=== PATIENT | female | born 1950 | race Hispanic/Latino ===

== ENCOUNTER 2017-09-29 21:27 | Inpatient (IN) | payer OTHER, MEDICARE ==
[~2017-09-29] VITALS: Ht 153.7 cm; Wt 68.5 kg
[2017-09-29] MEDS ORDERED: KETOROLAC TROMETHAMINE 30 MG/ML VIAL IV STA (21:52)
[2017-09-29] MEDS ORDERED: PANTOPRAZOLE 40 MG 10ML VIAL IV STA (21:52)
[2017-09-29] MEDS ORDERED: ONDANSETRON HCL INJ 2 MG/ML VIAL IV STA (21:52)
[2017-09-29] MEDS ORDERED: SODIUM CHLORIDE 0.9% 1000ML 1,000 ML IV STA (21:52)
[2017-09-29] MEDS ORDERED: MORPHINE SULFATE 2 MG/ML SYR IV STA (21:52)
[2017-09-29 22:20] LABS: BASOPHILS % 0.1 % (0.0-1.0); EOSINOPHILS % 0.2 % (0.0-6.0); HEMATOCRIT 41.5 % (34.2-44.1); HEMOGLOBIN 13.4 g/dL (12.0-16.0); LYMPHOCYTES # (AUTO) 1.4 (1.0-3.2); LYMPHOCYTES % 12.8 % (18.0-39.1); MEAN CORPUSCULAR HEMOGLOBIN 28.5 pg (28-32); MEAN CORPUSCULAR HGB CONC 32.3 g/dL (31-35); MEAN CORPUSCULAR VOLUME 88.3 fL (81-99); MONOCYTES # (AUTO) 0.4 (0.2-0.8); MONOCYTES % 3.5 % (4.4-11.3); NEUTROPHILS # (AUTO) 9.1 (2.1-6.9); NEUTROPHILS % 82.9 % (38.7-80.0); PLATELET COUNT 249 x10e3/uL (140-360); RED CELL DISTRIBUTION WIDTH 14.1 % (11.7-14.4)
[2017-09-29 22:21] LABS: BILIRUBIN,URINE NEGATIVE (NEGATIVE); KETONES,URINE NEGATIVE (NEGATIVE); LEUKOCYTE ESTERASE ,URINE 1+ (NEGATIVE); NITRITE,URINE NEGATIVE (NEGATIVE); PROTEIN,URINE DIPSTICK NEGATIVE (NEGATIVE); URINE UROBILINOGEN 0.2 mg/dL (0.2 - 1)
[2017-09-29 22:22] LABS: CLARITY,URINE CLEAR (CLEAR); COLOR,URINE YELLOW (YELLOW)
[2017-09-29 22:32] LABS: INR 1.07; PROTHROMBIN TIME 13.1 seconds (11.9-14.5)
--- NOTE | 2017-09-29 22:32 | Diagnostic Imaging Report ---
EXAM: CT ABDOMEN AND PELVIS without IV CONTRAST INDICATION: Left lower quadrant and flank pain COMPARISON: None TECHNIQUE: The abdomen and pelvis were scanned using a multidetector helical scanner. Coronal and sagittal reformations were obtained. Renal stone protocol performed. IV Contrast: None Oral Contrast: None CTDIvol has been reviewed. It is below the limits set by the Radiation Protocol Committee (RPC). FINDINGS: LOWER THORAX: No consolidations LIVER: No masses BILIARY: The gallbladder has been removed. No ductal dilation. SPLEEN: Nonspecific 3.5 cm hypodense mass in the spleen. PANCREAS: No masses ADRENALS: No nodules RIGHT KIDNEY: No nephroureterolithiasis or hydronephrosis. LEFT KIDNEY: There is a 4 mm stone within 1 cm of the left ureterovesicular junction resulting in moderate hydroureteronephrosis. GI TRACT: No wall thickening or obstruction. Normal appendix. VESSELS: Mild atherosclerotic changes of the abdominal aorta without aneurysm. PERITONEUM/RETROPERITONEUM: No free air or fluid LYMPH NODES: No lymphadenopathy REPRODUCTIVE ORGANS: Normal BLADDER: Decompressed SOFT TISSUES: Normal BONES: No suspicious bone lesions. IMPRESSION: There is a 4 mm stone within 1 cm of the left ureterovesicular junction resulting in moderate hydroureteronephrosis. Nonspecific 3.5 cm hypodense mass in the spleen. In the absence of lymphoma or known primary malignancy, this is most likely a hemangioma or proteinaceous cyst. If there are no priors available for comparison, this could be further evaluated by a nonemergent MRI of the abdomen with and without IV contrast. Signed by: Dr. Arin Parker M.D. on 09/29/2017 10:28 PM
[2017-09-29 22:33] LABS: BACTERIA,URINE RARE /HPF; EPITHELIAL CELLS,URINE FEW /LPF; PARTIAL THROMBOPLASTIN TIME 28.5 seconds (23.8-35.5)
--- NOTE | 2017-09-29 22:33 | Diagnostic Imaging Report ---
EXAM: CHEST SINGLE (PORTABLE), AP 1 view INDICATION: Left-sided abdominal pain and back pain COMPARISON: None FINDINGS: LINES/TUBES: None LUNGS: No consolidations or edema. PLEURA: No effusions or pneumothorax. HEART AND MEDIASTINUM: Normal size and contour. BONES AND SOFT TISSUES: No acute findings. IMPRESSION: No acute thoracic abnormality. Signed by: Dr. Arin Parker M.D. on 09/29/2017 10:30 PM
[2017-09-29 22:42] LABS: ALBUMIN 4.3 g/dL (3.5-5.0); ALBUMIN/GLOBULIN RATIO 1.3 (0.8-2.0); ANION GAP 13.6 mmol/L (8-16); CALCIUM 10.5 mg/dL (8.4-10.2); CREATININE, SERUM 0.98 mg/dL (0.57-1.11); MAGNESIUM 1.8 MG/DL (1.3-2.1); POTASSIUM 4.6 mmol/L (3.5-5.1)
[2017-09-29 22:50] LABS: CREATINE KINASE MB 0.8 ng/mL (0-5.0)
[2017-09-29] MEDS: CEFTRIAXONE SOD 1 GM VIAL IV SCH (23:42)
[2017-09-30] VITALS (9 sets, daily range): BP systolic 104–146; BP diastolic 53–65
[2017-09-30] MEDS ORDERED: MORPHINE SULFATE 2 MG/ML SYR IV PRN
[2017-09-30] MEDS ORDERED: ONDANSETRON HCL INJ 2 MG/ML VIAL IV PRN
[2017-09-30] MEDS ORDERED: DEXTROSE 50% SYRINGE 50 ML IV PRN
[2017-09-30] MEDS ORDERED: CALCIUM 600 +1 EAC1 PO (00:04)
[2017-09-30] MEDS ORDERED: LISINOPRIL2.5 MG PO (00:04)
[2017-09-30] MEDS ORDERED: ATORVASTATIN CA20 MG PO (00:04)
[2017-09-30] MEDS ORDERED: METFORMIN HCL500 MG PO (00:04)
[2017-09-30] MEDS ORDERED: PIOGLITAZONE HC45 MG PO (00:04)
[2017-09-30] MEDS ORDERED: FAMOTIDINE20 MG PO (00:04)
--- OUTSIDE RECORDS SUMMARY | 2017-09-30 00:07 | XMS REPORT ---
Author Author [facility] Address Unknown Phone Unavailable Care Team Providers Care House Painting Instructor Name Role Phone PAUL GRUBBS Unavailable Unavailable Problems This patient has no known problems. Allergies, Adverse Reactions, Alerts This patient has no known allergies or adverse reactions. Medications This patient has no known medications. Results Test Description Test Time Test Comments Text Results Atomic Results Result Comments CT ABDOMEN/PELVIS WO [place] [address] Patient Name: JOSE CUELLO MR #: [id number] : 1950 Age/Sex: 66/F Req #: [id number] Adm Physician: Ordered by: PAUL GRUBBS MD Report #: [id number] Location: ER Room/Bed: Procedure: [id number] CT/CT ABDOMEN/PELVIS WO Exam Date: 09/29/17 Exam Time: 2204 REPORT STATUS: Signed EXAM: CT ABDOMEN AND PELVIS without IV CONTRAST INDICATION: Left lower quadrant and flank pain COMPARISON: None TECHNIQUE: The abdomen and pelvis were scanned using a multidetector helical scanner. Coronal and sagittal reformations were obtained. Renal stone protocol performed. IV Contrast: None Oral Contrast : None CTDIvol has been reviewed. It is below the limits set by the Radiation Protocol Committee (RPC). FINDINGS: LOWER THORAX: No consolidations LIVER: No masses BILIARY: The gallbladder has been removed. No ductal dilation. SPLEEN: Nonspecific 3.5 cm hypodense mass in the spleen. PANCREAS: No masses ADRENALS: No nodules RIGHT KIDNEY: No nephroureterolithiasis or hydronephrosis. LEFT KIDNEY: There is a 4 mm stone within 1 cm of the left ureterovesicular junction resulting in moderate hydroureteronephrosis. GI TRACT: No wall thickening or obstruction. Normal appendix. VESSELS: Mild atherosclerotic changes of the abdominal aorta without aneurysm. PERITONEUM/RETROPERITONEUM: No free air or fluid LYMPH NODES: No lymphadenopathy REPRODUCTIVE ORGANS: Normal BLADDER: Decompressed SOFT TISSUES: Normal BONES: No suspicious bone lesions. IMPRESSION: There is a 4 mm stone within 1 cm of the left ureterovesicular junction resulting in moderate hydroureteronephrosis. Nonspecific 3.5 cm hypodense mass in the spleen. In the absence of lymphoma or known primary malignancy, this is most likely a hemangioma or proteinaceous cyst. If there are no priors available for comparison, this could be further evaluated by a nonemergent MRI of the abdomen with and without IV contrast. Signed by: Dr. Luz Marina Kingsley M.D. on 09/29/2017 10:28 PM Dictated By: LUZ MARINA KINGSLEY MD 27 Transcribed By: LIMA on 09/29/172227 COPY TO: PAUL GRUBBS MD [facility] ([place] [address] Patient Name: JOSE CUELLO MR #: [id number] : 1950 Age/Sex: 66/F Req #: [id number] Adm Physician: Ordered by: PAUL GRUBBS MD Report #: [id number] Location: ER Room/Bed: Procedure: [id number] DX/CHEST SINGLE (PORTABLE) Exam Date: 09/29/17 Exam Time: 2209 REPORT STATUS: Signed EXAM: CHEST SINGLE (PORTABLE), AP 1 view INDICATION: Left-sided abdominal pain and back pain COMPARISON: None FINDINGS: LINES/TUBES: None LUNGS: No consolidations or edema. PLEURA: No effusions or pneumothorax. HEART AND MEDIASTINUM: Normal size and contour. BONES AND SOFT TISSUES: No acute findings. IMPRESSION: No acute thoracic abnormality. Signed by: Dr. Luz Marina Kingsley M.D. on 09/29/2017 10:30 PM Dictated By: LUZ MARINA KINGSLEY MD 29 Transcribed By: LIMA on 09/29/172229 COPY TO: PAUL GRUBBS MD
[2017-09-30] MEDS ORDERED: ACTOS15 MG PO (00:19)
[2017-09-30] MEDS: INSULIN REGULAR, HUMAN 100 UNIT/1 ML 3ML VIAL SQ SCH ×4 (00:26→18:01)
[2017-09-30] MEDS: SODIUM CHLORIDE 0.9% 1000ML 1,000 ML IV SCH ×3 (02:15→21:36)
[2017-09-30 09:39] LABS: BASOPHILS % 0.2 % (0.0-1.0); EOSINOPHILS % 0.5 % (0.0-6.0); HEMATOCRIT 37.2 % (34.2-44.1); LYMPHOCYTES # (AUTO) 1.1 (1.0-3.2); LYMPHOCYTES % 27.5 % (18.0-39.1); MEAN CORPUSCULAR HEMOGLOBIN 28.7 pg (28-32); MEAN CORPUSCULAR HGB CONC 32.3 g/dL (31-35); MONOCYTES # (AUTO) 0.2 (0.2-0.8); NEUTROPHILS # (AUTO) 2.6 (2.1-6.9); NEUTROPHILS % 65.6 % (38.7-80.0); PLATELET COUNT 199 x10e3/uL (140-360); RED BLOOD COUNT 4.18 x10e6/uL (3.6-5.1); RED CELL DISTRIBUTION WIDTH 14.2 % (11.7-14.4)
[2017-09-30 09:58] LABS: ALANINE AMINOTRANSFERASE 16 IU/L (0-55); ALBUMIN 3.3 g/dL (3.5-5.0); ALBUMIN/GLOBULIN RATIO 1.3 (0.8-2.0); ALKALINE PHOSPHATASE 58 IU/L (40-150); ANION GAP 10.9 mmol/L (8-16); BLOOD UREA NITROGEN 16 mg/dL (7-26); BUN/CREATININE RATIO 21 (6-25); CARBON DIOXIDE 24 mmol/L (22-29); CHLORIDE 109 mmol/L (98-107); CREATININE, SERUM 0.78 mg/dL (0.57-1.11); EST GLOMERULAR FILTRATION RATE > 60 ML/MIN (60-); GLUCOSE 173 mg/dL (74-118); POTASSIUM 3.9 mmol/L (3.5-5.1); SODIUM 140 mmol/L (136-145)
--- NOTE | 2017-09-30 10:30 | Diagnostic Imaging Report ---
PROCEDURE:X-RAY ABDOMEN - KUB COMPARISON:CT abdomen and pelvis 09/29/2017. INDICATIONS:KIDNEY STONES LEFT SIDE FINDINGS: 4 mm left pelvic calculus, shown to lie just proximal the left ureterovesical junction on comparison CT, is unchanged in position relative to basket turner tomogram. No additional calcifications project over the renal shadows, expected ureteral courses, or urinary bladder. Bowel gas pattern is nonobstructive. Cholecystectomy clips. 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 CONCLUSION: 4 mm left ureterovesical junction calculus is grossly unchanged in position relative to basket turner tomogram from CT examination 09/29/2017. Dictated by: Varinder Suarez M.D. on 09/30/2017 at 10:29 Electronically approved by: Varinder Suarez M.D. on 09/30/2017 at 10:29
[2017-09-30] MEDS: TAMSULOSIN HCL 0.4 MG CAP PO SCH ×2 (15:37→21:00)
[2017-09-30] MEDS ORDERED: FAMOTIDINE 20 MG TAB PO ONE (15:45)
[2017-09-30] MEDS ORDERED: POLYETHYLENE GLYCOL 3350 17 GM PACK PO ONE (16:45)
[2017-09-30] MEDS ORDERED: POLYETHYLENE GLYCOL 3350 17 GM PACK PO PRN (16:45)
[2017-09-30] MEDS ORDERED: LACTULOSE SYRUP 20 GM/30 ML UDC PO PRN (17:15)
[2017-09-30] MEDS ORDERED: HYDRALAZINE HCL 20 MG/ML VIAL IV PRN (17:15)
[2017-09-30] MEDS: ASCORBIC ACID 500 MG TAB PO SCH (17:37)
[2017-09-30] MEDS: DOCUSATE SODIUM 100 MG CAP PO SCH (17:37)
[2017-09-30] MEDS: CEFTRIAXONE SOD 1 GM VIAL IV SCH (23:15)
[2017-10-01] VITALS (8 sets, daily range): BP systolic 92–148; BP diastolic 51–66
[2017-10-01] MEDS: INSULIN REGULAR, HUMAN 100 UNIT/1 ML 3ML VIAL SQ SCH ×4 (06:00→16:34)
[2017-10-01] MEDS: SODIUM CHLORIDE 0.9% 1000ML 1,000 ML IV SCH ×2 (06:46→16:19)
[2017-10-01 07:22] LABS: BASOPHILS % 0.3 % (0.0-1.0); EOSINOPHILS # (AUTO) 0.1 (0.0-0.4); EOSINOPHILS % 1.4 % (0.0-6.0); HEMATOCRIT 35.9 % (34.2-44.1); HEMOGLOBIN 11.5 g/dL (12.0-16.0); LYMPHOCYTES # (AUTO) 1.6 (1.0-3.2); LYMPHOCYTES % 43.8 % (18.0-39.1); MEAN CORPUSCULAR HEMOGLOBIN 28.6 pg (28-32); MEAN CORPUSCULAR VOLUME 89.3 fL (81-99); MONOCYTES # (AUTO) 0.2 (0.2-0.8); MONOCYTES % 5.9 % (4.4-11.3); NEUTROPHILS # (AUTO) 1.7 (2.1-6.9); NEUTROPHILS % 48.3 % (38.7-80.0); PLATELET COUNT 189 x10e3/uL (140-360); RED BLOOD COUNT 4.02 x10e6/uL (3.6-5.1); RED CELL DISTRIBUTION WIDTH 14.6 % (11.7-14.4)
--- NOTE | 2017-10-01 07:24 | Consultation ---
DATE OF CONSULTATION: September 30, 2017 UROLOGICAL CONSULTATION CHIEF UROLOGICAL COMPLAINT/REASON FOR CONSULTATION: Kidney stones. HISTORY OF PRESENT ILLNESS: Ms. Mckay is a 66-year-old female admitted to the hospital with acute onset of left severe sharp flank pain. She denied dysuria. She denied hematuria. PAST MEDICAL HISTORY: Significant for cholecystectomy, hyperlipidemia, gastroesophageal reflux disease. MEDICATIONS: Please see MAR. ALLERGIES: NKDA. SOCIAL HISTORY: Does not smoke or drink. FAMILY HISTORY: Denied urologic stones. No malignancies. REVIEW OF SYSTEMS: Noncontributory other than problems mentioned above for all other 12 systems. PHYSICAL EXAMINATION GENERAL: Elderly female in no acute distress. VITALS: Temperature 97, pulse 64, respirations 16, blood pressure 110/59. HEENT: Sclerae anicteric. NECK: Supple. BACK: Without costovertebral abnormality. ABDOMEN: Soft. It is nontender. It is nondistended. There are no palpable mass. No palpable hernias. No palpable lymphadenopathy. : Normal female external genitalia. EXTREMITIES: Without edema or clubbing. PSYCH: Alert and oriented and appropriate. SKIN: Intact and normal color. PERTINENT LABORATORY DATA: CT scan showing a 4 mm left ureterovesical junction stone, hydronephrosis, a 3.5 cm hyperdense splenic mass. Sodium 137, potassium 4, chloride 102, bicarb 26, BUN 18, creatinine 0.98, glucose 164. Hemoglobin 13, hematocrit 41, and platelet count 249,000. White blood cell count 10,900. Urinalysis with 11-20 reds, 6-10 whites and positive squames. IMPRESSION 1. Left ureteral calculus. 2. Left hydronephrosis. 3. Left renal colic. 4. Hyperglycemia. 5. Microscopic hematuria. 6. Urinary tract infection. PLAN: Employ a trial of passage. Should this fail, the patient will need stenting. Thank you for allowing me to participate in the care of your patient. I will be happy to follow along with you. Job#: [id number] RI cc:HIWOT THOMSON MD
[2017-10-01 07:40] LABS: ANION GAP 9.2 mmol/L (8-16); BLOOD UREA NITROGEN 11 mg/dL (7-26); BUN/CREATININE RATIO 17 (6-25); CALCIUM 8.8 mg/dL (8.4-10.2); CARBON DIOXIDE 27 mmol/L (22-29); CHLORIDE 111 mmol/L (98-107); CREATININE, SERUM 0.66 mg/dL (0.57-1.11); EST GLOMERULAR FILTRATION RATE > 60 ML/MIN (60-); GLUCOSE 128 mg/dL (74-118); MAGNESIUM 1.8 MG/DL (1.3-2.1); PHOSPHORUS 3.4 MG/DL (2.3-4.7); POTASSIUM 4.2 mmol/L (3.5-5.1); SODIUM 143 mmol/L (136-145)
[2017-10-01] MEDS: TAMSULOSIN HCL 0.4 MG CAP PO SCH ×2 (08:40→21:01)
[2017-10-01] MEDS: DOCUSATE SODIUM 100 MG CAP PO SCH ×2 (08:40→16:33)
[2017-10-01] MEDS: FAMOTIDINE 20 MG TAB PO SCH (08:40)
[2017-10-01] MEDS: ASCORBIC ACID 500 MG TAB PO SCH ×2 (08:40→16:33)
--- NOTE | 2017-10-01 10:57 | Diagnostic Imaging Report ---
PROCEDURE:ABDOMEN-1VIEW (KUB) TECHNIQUE:Supine AP abdomen INDICATION:Kidney stones COMPARISON:Patients [facility], CT, CT ABDOMEN/PELVIS WO, 09/29/2017, 22:06. Patients [facility], DX, ABDOMEN-1VIEW (KUB), 09/30/2017, 10:05. FINDINGS: See conclusion. Normal bowel gas pattern. Cholecystectomy clips. Intact skeleton. CONCLUSION: 1. Stable 4 mm left ureterovesicular junction stone. No additional conspicuous renal stones. 2. Otherwise, no interval change from September 30. Dictated by: Sadiq Guillaume M.D. on 10/01/2017 at 10:57 Electronically approved by: Sadiq Guillaume M.D. on 10/01/2017 at 10:57
--- NOTE | 2017-10-01 11:28 | History and Physical ---
PRIMARY CARE PROVIDER: Dr. Darren Moffett. HISTORY OF PRESENT ILLNESS: Ms. Mckay is a 66-year-old female who arrived via the emergency department yesterday complaining of left flank pain, described as sharp and radiating to the left groin. It has been constant and waxing and waning. Its maximum in severity was described as severe, no contributing or alleviating factors. No recent travel. She denies any past medical history of kidney stones. She has been admitted and has been given normal saline, IV fluids and morphine for pain. PAST MEDICAL HISTORY: Hyperlipidemia, gastroesophageal reflux disease, type 2 diabetes mellitus diagnosed in 2013, hypertension, gallstones, mild asthma. She states she had an echocardiogram and stress test in 2005 due to dizziness, which were normal. She had a colonoscopy about 10 years ago which she states was negative with 1 polyp which was biopsied and negative. PAST SURGICAL HISTORY: Total abdominal hysterectomy with bilateral salpingo-oophorectomy in 1998, cholecystectomy. FAMILY HISTORY: Her father of a myocardial infarction when he was 68. He had a subsequent coronary artery bypass graft and at age 72. He also had diabetes, hypertension and hyperlipidemia. The patient states that her father, mother, 2 sisters and one brother all had diabetes mellitus, hyperlipidemia and hypertension. ALLERGIES: NO KNOWN DRUG ALLERGIES. HOME MEDICATIONS: Metformin, lisinopril, atorvastatin, calcium carbonate with vitamin D3. SOCIAL HISTORY: She lives with her son. She denies any history of tobacco use or illicit drug use or alcohol use. REVIEW OF SYSTEMS: GENERAL: The patient denies any fatigue. She does have malaise. No complaints of chills. HEENT: Denies any visual complaints. No complaints of sore throat or stuffy nose. CARDIOVASCULAR: No complaints of chest pain or palpitations. No complaints of syncope. PULMONARY: Denies any pleuritic chest pain. No shortness of breath, cough or phlegm. GASTROINTESTINAL: Denies nausea, vomiting or diarrhea. She states she usually has a BM in the morning, and then 1-2 bowel movements during the day. Her last bowel movement was yesterday and she had 3 per her usual routine. However, she did not have a bowel movement this morning. GENITOURINARY: The patient states her pain is currently 3 on a scale of 0-10. She does complain of pressure and urgency. She has left costovertebral angle pain. Denies dysuria. Denies frequency. MUSCULOSKELETAL: No complaints of back pain or joint pain. ENDOCRINE: Positive for diabetes. HEMATOLOGY: Denies bleeding or bruising. INFECTIOUS DISEASE: No known history of HIV or immunodeficiency. NEUROLOGIC: Denies any focal weakness, numbness, tingling, seizures. PHYSICAL EXAMINATION VITAL SIGNS: Temperature 96.4, heart rate 71, blood pressure 146/65 with a pulse of 92, respiratory rate 20, oxygen saturation 100%, weight 151 pounds. BMI 29. Intake and output: 1400 mL in and output not documented. GENERAL: The patient is well nourished, well developed, and in no acute distress, sitting in a chair at the bedside. HEENT: Pupils are equal, round and reactive to light. Extraocular eyes movements intact. Oropharynx is clear. Normocephalic, atraumatic. NECK: Supple with no lymphadenopathy, thyromegaly or JVD noted. No carotid bruits. CARDIOVASCULAR: Regular rate and rhythm without murmur. LUNGS: Air entry bilaterally. Lung sounds are clear to auscultation. ABDOMEN: Bowel sounds positive, soft. Mild tenderness to gentle palpation. Left costovertebral angle tenderness. EXTREMITIES: No pitting edema. No clubbing or cyanosis or notable swelling. No signs or symptoms of DVT. INTEGUMENT: Warm, dry. NEUROLOGIC: GCS 15. Cranial nerves II-X are intact. Alert and oriented x4. Nonfocal. LABORATORY DATA: Fingerstick blood glucose levels [id number], 111, 133, 133. On admission, sodium 137, potassium 4.6, chloride 102, CO2 26. Anion gap 13.6. BUN 18. Creatinine 0.898. GFR 57. Glucose 164. Calcium 10.5. Magnesium 1.8. Total bilirubin 0.6, AST 16, ALT 21, alkaline phosphatase 81. Creatinine kinase 83. CK MB. 0.8. Troponin I 0.018. Total protein 7.6. Albumin 4.3. Amylase 44, lipase 48. WBC10.99. Hemoglobin 13.4, hematocrit 41.5, platelets 249. PT 13.1. INR 1.07. PTT 28.5. Urinalysis collected yesterday showed specific gravity 1.020, 4+ blood, negative nitrites. Bilirubin negative. One plus leukocyte esterase, 11-20 RBCs, 6-10 WBCs, few epithelial cells and rare urine bacteria. Urine culture and sensitivity is in process. Chest x-ray yesterday showed no acute thoracic abnormalities. CT of the abdomen and pelvis without IV contrast yesterday showed a 4 mm stone with 1 cm of the left ureterovesicular junction resulting in moderate hydroureteronephrosis. Nonspecific 3.5 cm hypodense mass in the spleen today and abdominal x-ray showed 4 mm left ureterovesicular junction calculus grossly unchanged from the position relative to Automotive [employer] Advisor tomogram from CT examination done yesterday. ASSESSMENT AND PLAN 1. Urethral calculus with obstruction. The patient will likely have a stent placed tomorrow. Dr. Aaron Barrow with urology has been consulted. Continue pain control with morphine sulfate IV. 2. Urinary tract infection. She is on Rocephin 1 gram IV daily. Will add vitamin C. Will ask that strict intake and output be collected. 3. Type 2 diabetes mellitus. Patient's home medications is Actos, metformin, lisinopril and atorvastatin and calcium carbonate with vitamin D3 had been held. Continue sliding scale insulin. Monitor fingerstick blood glucose levels. Will check hemoglobin A1c. 4. Hypertension. Monitor blood pressure. Will add p.r.n. hydralazine IV. 5. Mild asthma. Monitor. 6. Gastroesophageal reflux disease. 7. Prophylaxis: Continue Pepcid. 8. Constipation. Will add bowel program. Dictated by: Lior Oseguera NP Job#: [id number]
[2017-10-01] MEDS ORDERED: IOPAMIDOL 610MG/1ML 300 MG/ML VIAL IV ONE (12:00)
[2017-10-01] MEDS ORDERED: LIDOCAINE HCL 2% LOCAL INJ 5 ML SDV VIAL INJ ONE (17:21)
[2017-10-01] MEDS ORDERED: SEVOFLURANE INHAL SOLN 250 ML PEN BTL ONE (17:21)
[2017-10-01] MEDS ORDERED: DEXAMETHASONE SOD PHOS INJ 4 MG/ML VIAL ONE (17:21)
[2017-10-01] MEDS ORDERED: PROPOFOL IV EMULSION 10 MG/ML 20 ML VIAL ONE (17:21)
[2017-10-01] MEDS ORDERED: ONDANSETRON HCL INJ 2 MG/ML VIAL ONE (17:21)
--- NOTE | 2017-10-01 18:34 | Operative Report ---
DATE OF PROCEDURE: October 01, 2017 PREOPERATIVE DIAGNOSIS 1. Microscopic hematuria. 2. Hydronephrosis. POSTOPERATIVE DIAGNOSIS 1. Microscopic hematuria. 2. Hydronephrosis. PROCEDURE PERFORMED 1. Cystourethroscopy with right ureteral catheterization and right retrograde pyelogram (separate procedure for diagnosis of microscopic hematuria). 2. Cystourethroscopy with insertion of a left indwelling ureteral stent (entirely separate procedure for diagnosis of left hydronephrosis). 3. Supervision of fluoroscopy. 4. Interpretation of retrograde pyelography. ANESTHESIA: General. ESTIMATED BLOOD LOSS: Minimal. COMPLICATIONS: None. INDICATIONS FOR PROCEDURE: Ms. Mckay is a 66-year-old female with signs of an infection and failure of trial of passage of a stone. She and I had a long discussion in regard to the alternatives, the risks and benefits including doing nothing, stent placement, percutaneous nephrostomy. She voiced understanding of the options, alternatives, the risks and the benefits, the fact the stent is a temporary indwelling device that must be removed and failure to do so could lead to encrustation, infection, inflammation of the natural ostium of the kidney, and even . PROCEDURE IN DETAIL: After informed consent was obtained, the patient was taken to the operative suite. She was placed supine on the operating table and underwent general anesthesia by the anesthesia service. She was then placed in the dorsal lithotomy position and sterilely prepped and draped in the standard fashion for cystoscopy. A 22.5-Micronesian cystoscope was inserted per urethra, and a normal urethra was noted. Panendoscopy of the bladder revealed no tumors, no stones. Both ureteral orifices were in their normal anatomical location and position and seen to efflux clear urine. Bilateral retrograde pyelograms were performed and revealed a left distal ureteral stone with proximal hydronephrosis. The right was normal. A ureteral stent was placed, requiring an angle-tip Roadrunner on the left side. A 6 x 26 stent was coiled in the renal pelvis and coiled in the bladder. The bladder was drained. The patient was awakened from anesthesia and transported to the recovery room in excellent condition. SUPERVISION OF FLUOROSCOPY AND INTERPRETATION OF RETROGRADE PYELOGRAPHY: I was present throughout the entire procedure, and I supervised fluoroscopy. There was no radiologist present. Attention was turned toward the left and right ureteral orifices, and they were catheterized with an 8-Micronesian cone-tipped catheter. In a retrograde fashion, contrast was injected, revealing delicate ureters, on the right delicate collecting and caliceal system, on the left a distal 4 to 5 mm stone and proximal hydronephrosis. Postoperative views on the left side revealed the stent in good position. Job#: [id number]
[2017-10-01] MEDS ORDERED: FENTANYL CITRATE/PF 100MCG/2 ML INJ ONE (18:47)
[2017-10-01] MEDS ORDERED: MIDAZOLAM HCL 2 MG/2 ML VIAL ONE (18:47)
[2017-10-01] MEDS: CEFTRIAXONE SOD 1 GM VIAL IV SCH (23:15)
[2017-10-02] VITALS (8 sets, daily range): BP systolic 115–148; BP diastolic 57–62
[2017-10-02] MEDS: SODIUM CHLORIDE 0.9% 1000ML 1,000 ML IV SCH ×2 (02:41→11:58)
[2017-10-02] MEDS: INSULIN REGULAR, HUMAN 100 UNIT/1 ML 3ML VIAL SQ SCH ×5 (06:00→16:30)
[2017-10-02] MEDS: TAMSULOSIN HCL 0.4 MG CAP PO SCH (09:04)
[2017-10-02] MEDS: ASCORBIC ACID 500 MG TAB PO SCH ×2 (09:04→16:31)
[2017-10-02] MEDS: FAMOTIDINE 20 MG TAB PO SCH (09:04)
[2017-10-02] MEDS: DOCUSATE SODIUM 100 MG CAP PO SCH ×2 (09:04→16:31)
[2017-10-02] MEDS ORDERED: TYLENOL WITH C1 EACH PO (13:57)
[2017-10-02] MEDS ORDERED: DITROPAN XL5 MG PO (13:59)
[2017-10-02] MEDS ORDERED: ASCORBIC ACID500 MG PO (19:03)
[2017-10-02] MEDS ORDERED: MIRALAX17 GM PO (19:03)
[2017-10-02] MEDS ORDERED: FLOMAX0.4 MG PO (19:03)
[2017-10-02] MEDS ORDERED: COLACE100 M1 PO (19:03)
--- NOTE | 2017-10-02 20:51 | Discharge Summary ---
PERTINENT HISTORY AND PHYSICAL FINDINGS: Ms. Mckay is a 66-year-old female who had arrived via the emergency department on September 29 complaining of left flank pain described as sharp and radiating to the left groin. It has been constant and waxing and waning. It is maximum in severity, described as severe, no contributing or alleviating factors. No recent travel. She denied any past medical history of kidney stones. She was admitted and given normal saline IV fluids and morphine for pain. PAST MEDICAL HISTORY: Significant for hyperlipidemia, gastroesophageal reflux disease, type 2 diabetes diagnosed in 2013, hypertension, gallstones, mild asthma. Echocardiogram and stress test in 2005 due to dizziness which were normal. ADMITTING DIAGNOSES 1. Urethral calculus with obstruction. 2. Urinary tract infection. 3. Type 2 diabetes. 4. Hypertension. 5. Mild asthma. 6. Gastroesophageal reflux disease. 7. Constipation. DISCHARGE DIAGNOSES: 1. Ureteral calculus with obstruction. 2. Urinary tract infection. 3. Type 2 diabetes. 4. Hypertension. 5. Mild asthma, 6. Gastroesophageal reflux disease. 7. Constipation. CONSULTING PHYSICIAN: Dr. Aaron Barrow. PERTINENT LABORATORY AND DIAGNOSTIC DATA ON ADMISSION: BUN was 18, creatinine 0.898, GFR 58, amylase 44, lipase 48. Urinalysis was negative for nitrites, 4+ blood, 1+ leukocyte esterase,11-20 RBCs, 6 to 10 WBCs, a few epithelial cells and rare urine bacteria. Urine culture and sensitivity did not grow any organisms. CT of the abdomen and pelvis without IV contrast shows a 4 mm stone, 1 cm left ureteral vesicular junction resulting in moderate hydroureteronephrosis, nonspecific 3.5 hypodense mass in the spleen and abdominal x-ray shows a 4 mm left ureteral vesicular junction calculus grossly unchanged from the position relative to App[employer] tomogram from CT examination. The patient was given pain medication, morphine sulfate for pain control. Urologist's diagnoses included left ureteral calculus, left hydronephrosis, left renal colic, hyperglycemia, microscopic hematuria and urinary tract infection. The patient underwent cystourethroscopy with right ureteral catheterization and right retrograde pyelogram on October 01 and she failed the trial of passage of a stone and has still not passed any stones. She has been on Rocephin IV daily for the urinary tract infection as well as vitamin C. Her hemoglobin A1c was 6%. KUB yesterday had shown no change. The patient is to follow up with urology in 2 weeks. Today, she denies any chills. She still has some abdominal pain, 2-3 on a scale of 0-10. Dr. Barrow left prescription for Tylenol No. 3 and Ditropan. The patient will be discharged home without home health. Physical examination unchanged. No DME. Continue ADA diet. Activity level as tolerated. Follow up with primary care physician in 1-2 weeks. Dictated by: Lior Oseguera, Acute Care Nurse Practitioner HIWOT THOMSON MD Job#: [id number] GH
== END 2017-10-02 19:50 | disposition home or self-care (01) | DRG 690 ==
LOC: ER 21:27 → MED/SURG 09-30 00:04
PROVIDERS: ADMIT Internal Medicine; ATTEND Internal Medicine
PROC: BT1F1ZZ Fluoroscopy of Left Kidney, Ureter and Bladder using Low Osmolar Contrast (ICD-10-PCS; 2017-10-01)
PROC: BT1D1ZZ Fluoroscopy of Right Kidney, Ureter and Bladder using Low Osmolar Contrast (ICD-10-PCS; 2017-10-01)
PROC: 0T778DZ Dilation of Left Ureter with Intraluminal Device, Via Natural or Artificial Opening Endoscopic (ICD-10-PCS; principal; 2017-10-01 12:00)
DX: N13.6 Pyonephrosis (principal); I10 Essential (primary) hypertension; E78.5 Hyperlipidemia, unspecified; K21.9 Gastro-esophageal reflux disease without esophagitis; E11.9 Type 2 diabetes mellitus without complications; J45.909 Unspecified asthma, uncomplicated; K59.00 Constipation, unspecified
CPT/HCPCS: 36415; 71045; 74018; 74176; 74420; 80048; 80053; 81001; 82150; 82550; 82553; 82948; 83036; 83690; 83735; 84100; 84443; 84484; 85025; 85610; 85730; 87086; 96374; 99284; C1874; J0696; J1100; J1885; J2001; J2250; J2270; J2405; J7030

== ENCOUNTER → 2018-02-19 | Outpatient (CLI) | payer OTHER ==
[~2018-02-19] MED LIST: ACTOS15 MG PO; ASCORBIC ACID500 MG PO; ATORVASTATIN CA20 MG PO; CALCIUM 600 +1 EAC1 PO; COLACE100 M1 PO; DITROPAN XL5 MG PO; FAMOTIDINE20 MG PO; FLOMAX0.4 MG PO; LISINOPRIL2.5 MG PO; METFORMIN HCL500 MG PO; MIRALAX17 GM PO; PIOGLITAZONE HC45 MG PO; TYLENOL WITH C1 EACH PO
--- NOTE | 2018-02-19 13:01 | Diagnostic Imaging Report ---
PROCEDURE:X-RAY ABDOMEN - KUB COMPARISON:Multiple prior radiographs, most recently 10/01/2017. INDICATIONS:CALCULUS OF KIDNEY FINDINGS: One view of the abdomen (AP supine) No dilated loops of bowel or abnormal air-fluid levels patterns. No evidence of pneumoperitoneum. There are cholecystectomy clips in right upper quadrant. No definite calcifications are seen overlying the urinary system. The previously described left ureterovesical junction stone is no longer visualized. Five non-rib bearing lumbar type vertebral bodies identified. CONCLUSION: No radiopaque urinary stones. The previously described left ureterovesical junction is no longer visualized. Dictated by: Benjamin Rivera M.D. on 02/19/2018 at 13:07 Electronically approved by: Benjamin Rivera M.D. on 02/19/2018 at 13:07
== END ==
LOC: RAD 11:53
PROVIDERS: ATTEND Urology
DX: N20.0 Calculus of kidney (principal)
CPT/HCPCS: 74018

== ENCOUNTER → 2018-05-22 | Outpatient (CLI) | payer OTHER ==
--- NOTE | 2018-05-22 15:13 | Diagnostic Imaging Report ---
Exam: Abdominal film Clinical History: Calculus of kidney Comparison: CT abdomen and pelvis without contrast 09/29/2017 DISCUSSION: No suspicious calcifications project over the renal shadows or expected ureteral courses. Bowel gas pattern shows no dilated, air-filled loops of bowel. Gas and fecal material are noted throughout the large bowel. Surgical clips project over the right upper quadrant of the abdomen compatible with cholecystectomy. No mass effect or organomegaly. Regional skeletal structures are intact. IMPRESSION: No plain film evidence of urolithiasis. Signed by: Dr. Varinder Suarez M.D. on 05/22/2018 3:10 PM
== END ==
LOC: RAD 14:29
PROVIDERS: ATTEND Urology
DX: N20.0 Calculus of kidney (principal)
CPT/HCPCS: 74018

== ENCOUNTER → 2018-08-26 | Outpatient (CLI) | payer OTHER ==
--- NOTE | 2018-08-26 16:12 | Diagnostic Imaging Report ---
Exam: Abdominal KUB - single view. Clinical History: Calculus of kidney Comparison: CT abdomen and pelvis without contrast 09/29/2017 and KUB 05/22/2018. DISCUSSION: Bowel gas partially obscures visualization of the kidneys. Non-obstructive bowel gas pattern. No calcifications project over the kidneys or expected course of the ureters. Status post cholecystectomy. No acute osseous abnormality IMPRESSION: No radiographic evidence of urinary stone. Signed by: Dr. Makayla Wan MD on 08/26/2018 4:08 PM
== END ==
LOC: RAD 15:02
PROVIDERS: ATTEND Urology
DX: N20.0 Calculus of kidney (principal)
CPT/HCPCS: 74018

== ENCOUNTER → 2019-02-24 | Outpatient (CLI) | payer OTHER, MEDICARE ==
--- NOTE | 2019-02-24 11:09 | Diagnostic Imaging Report ---
Abdomen, 1 view. History: History of renal stones. Findings: Air is scattered throughout nondilated small and large bowel. There are no masses or abnormal calcifications. The osseous structures are intact. Cholecystectomy clips are present. IMPRESSION: Non-specific bowel gas pattern. No radiographically visible calculi. Signed by: Yogi Mauro on 02/24/2019 11:06 AM
== END ==
LOC: RAD 10:20
PROVIDERS: ATTEND Urology
DX: N20.0 Calculus of kidney (principal)
CPT/HCPCS: 74018

== ENCOUNTER → 2019-08-18 | Outpatient (CLI) | payer OTHER, MEDICARE ==
--- NOTE | 2019-08-18 10:00 | Diagnostic Imaging Report ---
Exam: KUB - 2 views Clinical History: Renal calculus. Comparison: KUB 02/24/2019. CT abdomen/pelvis 09/29/2017. Findings: Bowel gas partially obscures visualization of the kidneys. Non-obstructive bowel gas pattern. No calcifications project over the kidneys or expected course of the ureters. Status post cholecystectomy. No acute osseous abnormality IMPRESSION: No radiographic evidence of urinary stone. Signed by: Dr. Makayla Wan MD on 08/18/2019 9:58 AM
== END ==
LOC: RAD 09:08
PROVIDERS: ATTEND Urology
DX: N20.0 Calculus of kidney (principal)
CPT/HCPCS: 74018

== ENCOUNTER → 2020-02-18 | Outpatient (CLI) | payer OTHER ==
--- NOTE | 2020-02-18 11:22 | Diagnostic Imaging Report ---
Exam: KUB - 2 views Indication: Renal calculus Comparison: KUB of 08/18/2019 Findings: No radiographically apparent renal calculi. Nonobstructive bowel gas pattern. No free air. Status post cholecystectomy. No acute osseous injury. Impression: No radiographically apparent renal calculi. Signed by: Katty Herrera MD on 02/18/2020 11:18 AM
== END ==
LOC: RAD 09:39
PROVIDERS: ATTEND Urology
DX: N20.0 Calculus of kidney (principal)
CPT/HCPCS: 74018

== ENCOUNTER → 2021-02-20 | Outpatient (CLI) | payer OTHER | LOC: RAD 10:41 | PROVIDERS: ATTEND Urology | DX: N20.0 Calculus of kidney (principal) | CPT/HCPCS: 74018 ==